=== PATIENT | female | born 1985 | race Caucasian/White ===

== ENCOUNTER 2019-04-15 18:08 | Emergency (ER) | payer OTHER, SELFPAY ==
--- NOTE | 2019-04-15 18:28 | ED.FEVER ---
HPI - Fever General Chief Complaint: Fever Stated Complaint: cold,congestion,fever,sore throat History of Present Illness HPI Narrative: Demetria is a 33-year-old woman that presents to clinic with 2 days of fever, rhinorrhea, nasal congestion body aches and sore throat after exposure to strep and influenza B from multiple family members. She denies any shortness of breath, chest pain, nausea, vomiting and diaphoresis MD elicited complaint: other ( flu-like symptoms after flu and strep exposure) Related Data Home Medications Medication Instructions Recorded Confirmed fluoxetine 40 mg PO DAILY 04/15/19 04/15/19 Allergies Allergy/AdvReac Type Severity Reaction Status Date / Time amoxicillin Allergy Mild Hives Verified 04/15/19 18:27 Sulfa (Sulfonamide Allergy Anaphylaxis Verified 04/15/19 18:27 Antibiotics) Review of Systems Eyes: Eyes: Denies change in vision and Denies eye discharge ENT: Denies vertigo and Denies dizziness Cardiovascular: Cardiovascular: Reports no additional cardiovascular complaints, Denies chest pain with activity, Denies syncope, Denies edema and Denies dyspnea on exertion Respiratory: Respiratory: Reports cough and Denies dyspnea on exertion Gastrointestinal: Gastrointestinal: Denies abdominal pain, Denies diarrhea, Denies nausea and Denies vomiting Genitourinary: Genitourinary: Denies hematuria and Denies dysuria Musculoskeletal: Musculoskeletal: Reports no additional musculoskeletal complaints and Denies deformity Integumentary/Breasts: Skin/Breast: Reports system reviewed and no additional complaints, except as docu Neurologic: Reports system reviewed and no additional complaints, except as documented, Denies Normal hearing present, Denies behavioral changes, Denies confusion, Denies vertigo, Denies dizziness, Denies syncope and Denies loss of vision Psychiatric: Psychiatric: Denies anxiety, Denies behavioral changes, Denies confusion and Denies depression Endocrine: Endocrine: Reports no additional endocrine complaints Hematologic/Lymphatic: Hematologic/Lymphatic: Reports no additional hematologic/lymphatic complaints Allergic/Immunologic: Allergic/Immunologic: Reports no additional allergic/immunologic complaints [facility] Past Medical History Medical History (Updated 04/16/19 @ 00:00 by Background Daemon) SVT (supraventricular tachycardia) Exam Const: General: no acute distress and alert Orientation/consciousness: patient oriented x3 Limitations: No altered mental status HENMT: Other: TM within normal limits bilaterally, boggy and erythematous nasal turbinates bilaterally. Moist mucous membranes, enlarged tonsils, no cervical lymphadenopathy or submandibular lymphadenopathy Eyes: Conjunctivae: conjunctivae normal Pupils: Equal, round and reactive pupils present Neck: Neck: normal visual inspection Resp: Effort & Inspection: normal respiratory effort Auscultation: clear to auscultation bilaterally Cardio: Rate: regular rate Rhythm: regular rhythm GI: GI Palp: Yes Soft to palpation, No Tenderness to palpation present (GI) and No Guarding due to palpation present (GI) Skin: General skin exam: normal color Neuro: General: patient oriented x3 and moves all extremities Psych: Mental Status: mental status grossly normal Course Course Emergency Course: Demetria was seen and evaluated. Given her recent exposures as well as her flu-like symptoms has had a sore throat she was swabbed for influenza and strep. Rapid strep and Influenza B were positive. we discussed the risks and benefits of Tamiflu including shorter duration of symptoms versus GI upset nausea and she declined Tamiflu. As she is allergic to penicillin a script was sent for azithromycin. Vital Signs Vital signs: Vital Signs Temperature 37.7 C H 04/15/19 18:45 Pulse Rate 108 H 04/15/19 18:45 Respiratory Rate 13 04/15/19 18:45 Blood Pressure 136/89 04/15/19 18:45 Pulse Oximetry 95
[2019-04-15 18:45] VITALS: BP 136/89; PULSE 108; RESP 13; TEMP 37.7; O2SAT 95
[2019-04-15 19:04] VITALS: RESP 13
[2019-04-15 19:24] LABS: Influenza Control Valid (Valid)
[2019-04-15 19:43] VITALS: RESP 15; O2SAT 98
== END 2019-04-15 19:44 | disposition home or self-care (01) ==
PROVIDERS: Emergency Provider Family Medicine
DX: J11.1 Influenza due to unidentified influenza virus with other respiratory manifestations (principal); J02.0 Streptococcal pharyngitis
CPT/HCPCS: 87804; 87880; 99283